=== PATIENT | male | born 1935 | race American Indian/Alaskan Native ===

== ENCOUNTER 2017-01-08 08:17 | Outpatient (CLI) | payer MEDICARE ==
--- NOTE | 2017-01-08 10:56 | XRay Report ---
RIGHT HIP, 2 views: History: Pain. 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 No evidence for fracture, bone lesion or dislocation. The soft tissues are unremarkable. IMPRESSION: Mild degenerative changes.
== END 2017-01-08 08:18 | disposition home or self-care (01) ==
LOC: SPVIMAG 08:17
PROVIDERS: ATTEND Internal Medicine
DX: M16.11 Unilateral primary osteoarthritis, right hip (principal)

== ENCOUNTER 2018-08-14 07:14 | Day surgery (SDC) | payer MEDICARE ==
[2018-08-14] MEDS ORDERED: WATER FOR IRRIG STERILE ONE (07:33)
[2018-08-14] MEDS ORDERED: WATER FOR IRRIG STERILE IR ONE (07:33)
[2018-08-14] MEDS ORDERED: NACL 0.9% 1000 ML 1,000 ML IV SCH (08:00)
[2018-08-14] MEDS ORDERED: DIPRIVAN 10 MG/ML IV ONE (09:34)
[2018-08-14] MEDS ORDERED: XYLOCAINE 2% INFILTRATI ONE (09:37)
--- NOTE | 2018-08-14 09:55 | Discharge Summary ---
Short Stay Discharge Plan Activity: other (for BE now. rto saturday) Diet: other (reg diet post BE) Additional Instructions: Post Sedation D/C Instructions When you return home you may resume your regular diet unless otherwise directed. -Go directly home from the hospital and rest quietly. You may resume normal activities tomorrow. -Do NOT drive, return to work, operate any machinery or make any important personal or business decisions today. -Do NOT drink any alcohol or take nerve or sleeping drugs. They add to the effects of the medicine still present in your body. Follow up with: VASYL PANCHAL MD [Staff Physician] - 08/18/18 Forms: Post Sedation D/C Instructions
--- NOTE | 2018-08-14 09:56 | Anesthesia Day of Surgery ---
Anesthesia Day of Surgery - Day of Surgery Patient Examined: Yes Patient H&P Reviewed: Yes Patient is NPO: Yes Beta Blockers: No Cardiac Clearance: No Pulmonary Clearance: No
--- NOTE | 2018-08-14 09:56 | Anesthesia Consultation ---
Anesthesia Consult and Med Hx Date of service: 08/14/18 - Airway Anesthetic Teeth Evaluation: Good ROM Head & Neck: Adequate Mental/Hyoid Distance: Adequate Mallampati Class: Class III Intubation Access Assessment: Good - Pulmonary Exam CTA: Yes - Cardiac Exam Cardiac Exam: No Murmur - Pre-Operative Health Status ASA Pre-Surgery Classification: ASA3 Proposed Anesthetic Plan: MAC - Cardiovascular System Hx Hypertension: Yes - Gastrointestinal Hx Ulcer: Yes (PUD)
[2018-08-14 10:42] VITALS: BP 141/83
--- NOTE | 2018-08-14 11:18 | Operative Report ---
FLEXIBLE SIGMOIDOSCOPY REPORT PREPROCEDURE DIAGNOSIS: Anal pain. POSTOPERATIVE DIAGNOSES: 1. Very large prostate. 2. Small internal hemorrhoids. Rest of flexible sigmoidoscopy was essentially normal. SURGEON: Tristian Pineda MD ANESTHESIA: IV sedation. COMPLICATIONS: None. PROCEDURE IN DETAIL: The patient was taken to the GI Suite and placed in left lateral decubitus position. The anus was inspected and no clinically significant external hemorrhoids noted. A rectal exam was then performed. A very large prostate was noted. Sigmoidoscope was then gently introduced and advanced up to the distal descending colon. This area was all essentially normal. No evidence of any masses, polyps, or diverticula seen in this region. Retroflexion of the scope revealed some small internal hemorrhoids. The patient tolerated the procedure well and will now proceed to barium enema after recovery from sedation. The patient will also be followed up in the office on Saturday to review findings of the flexible sigmoidoscopy as well as the barium enema. JOB# [id number] FLORENCIO/ROZINA
--- NOTE | 2018-08-14 13:48 | Fluoroscopy Report ---
AIR CONTRAST BARIUM ENEMA History: Rectal pain. Findings: Television Director film of the abdomen is unremarkable. 18 fluoroscopic images were saved. The colon is normal caliber, mucosal pattern and distensibility. No evidence for mass or mucosal defect. The rectum is unremarkable. Normal appendix. Impression: Normal air contrast barium enema.
== END 2018-08-14 07:15 | disposition home or self-care (01) ==
LOC: GIO 07:14
PROVIDERS: ATTEND Surgery
DX: K64.8 Other hemorrhoids (principal); K62.89 Other specified diseases of anus and rectum; N40.0 Benign prostatic hyperplasia without lower urinary tract symptoms; H40.9 Unspecified glaucoma; I10 Essential (primary) hypertension; Z98.890 Other specified postprocedural states; Z79.899 Other long term (current) drug therapy; Z79.01 Long term (current) use of anticoagulants
CPT/HCPCS: 45330; 74280; J2704; J7030